=== PATIENT | female | born 1970 | race African-American/Black ===

== ENCOUNTER 2020-08-22 12:30 | Emergency (ER) | payer OTHER ==
[~2020-08-22] VITALS: Ht 160 cm; Wt 119.7 kg
--- NOTE | 2020-08-22 13:00 | Emergency Department Note ---
History of Present Illnes History of Present Illness Chief Complaint: BOB ANTOINE History of Present Illness This is a 49 year old female, with a history of IDDM, hypertension, hyperlipidemia, GERD, neuropathy, morbid obesity, breast cancer, and a flutter status post ablation, presents for evaluation of left lower calf pain that started yesterday, as well as shortness of breath on exertion. She also complains of pain in her left shoulder blade, that radiates forward to her chest. This pain has been intermittent for the past several days, she has not experienced this pain today. 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 She states that the blood pressure reading was 90/50, and she decided to go home and rest. She contacted her PCPs office, they suggested she come in the ED for evaluation. Patient states that the pain in the left calf, just above the Achilles tendon has been ongoing for the past couple of days. She states that she started a walking regimen 3 days ago, and she has been walking for 30 minutes continuously each day, which is a new activity for her. She has not been stretching before or after this physical activity. She states that the shortness of breath is not a new symptom, and that she has been experiencing exertional dyspnea since having Covid in March,. She denies any fever, cough, nasal congestion, orthopnea, PND, lower extremity swelling, or pain with weightbearing of the left leg. She has no history of DVT or PE. She takes a look was twice daily, due to the history of a flutter. She states that she was not taken off of Eliquis, follow ing the ablation last year. 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 Required: No Onset (how long ago): day(s) (2) Location: left leg pain/chest Quality: aching, throbbing; Radiation: Reports back Severity: moderate Onset quality: sudden Duration (how long): day(s) (2) Timing of current episode: intermittent Progression: waxing and waning Chronicity: new (left leg pain is new; the SOB is not new or worse than previous.) Context: Reports recent travel (She drives to [place] twice weekly ); Denies recent immobilization, Denies trauma/injury, Denies hx of DVT/PE Relieving factors: none Exacerbating factors: none Associated symptoms: Reports chest pain (the pain from her left scapula, radiates to the left chest, but she feels like the pain is originating from the left scapula;), Reports shortness of breath; Denies cough, Denies fever/chills, Denies nausea/vomiting, Denies syncope, De nies weakness Treatments prior to arrival: none Risk factors: multiple, see PMH Past Medical/Family History Physician Review I have reviewed the patient's past medical and family history. Any updates have been documented here. Past Medical History Recent Fever: No Clinical Suspicion of Infectio: No New/Unexplained Change in Ment: No Past Medical History: Hypertension, Diabetes (IDDM x 15 years), Cancer (Breast ), GERD, Hyperlipedemia Other Medical History: A Flutter s/p ablation 2019 Morbid Obesity Peripheral Neuropathy Past Surgical History: Cholecysctectomy, Hysterectomy, T&A, Tubal Ligation, Mastectomy (bilateral), Bariatric Surgery (gastric banding) Social History Smoking Cessation: Never Smoker Alcohol Use: None Any Illegal Drug Use: No TB Exposure/Symptoms: No Physically hurt or threatened: No Family History Family history of heart diseas: No Other Any Pre-Existing Lines (PICC,: No Is patient up to date on immun: No Review of Systems Review of Systems Constitutional: Denies chills, Denies fever EENTM: Denies nose congestion, Denies throat pain Cardiovascular: Reports chest pain; Denies edema, Denies palpitations Respiratory: Reports dyspnea on exertion (moderate exertion); Denies cough Gastrointestinal: Denies abdominal pain, Denies diarrhea, Denies nausea, Denies vomiting Genitourinary: Denies dysuria, Denies frequency Musculoskeletal: Reports back pain (left scapula), Reports muscle pain (left lower calf, just above the [place]'s tendon); Denies muscle stiffness, Denies neck pain Integumentary: Denies change in color, Denies rash Neurological: Reports numbness; Denies headache Psychological: Reports anxiety (pt admits to feeling anxious) Endocrine: Reports increased urination Hematological/Lymphatic: Reports no symptoms Review of other systems: All other systems negative Physical Exam Related Data Allergies: Coded Allergies: No Known Allergies (Unverified , 08/22/20) Vital signs reviewed: Yes Physical Exam CONSTITUTIONAL Constitutional: Present well-developed, Present well-nourished, Present morbidly obese; Absent distressed, Absent ill appearing HENT HENT: Present normocephalic, Present atraumatic, Present oropharynx clear/moist, Present nose normal; Absent nasal congestion, Absent rhinorrhea HENT L/R: Present left TM normal, Present right TM normal, Present left ext ear normal, Present right ext ear normal EYES Eyes: Reports PERRL, Reports conjunctivae normal NECK Neck: Present ROM normal, Present supple; Absent thyromegaly, Absent cervical adenopathy PULMONARY Pulmonary: Present effort normal, Present breath sounds normal; Absent respiratory distress CARDIOVASCULAR Cardiovascular: Present regular rhythm, Present heart sounds normal, Present capillary refill normal, Present normal rate; Absent murmur GASTROINTESTINAL Abdominal: Present soft, Present nontender, Present bowel sounds normal GENITOURINARY Genitourinary: Present exam deferred SKIN Skin: Present warm, Present dry; Absent rash MUSCULOSKELETAL Musculoskeletal: Present ROM normal, Present tenderness (mild ttp of left lower calf, at the insertion of the gastrocnemius, just above the achilles tendon; no LE edema, no pain with flexion/negative Layla's sign; ); Absent edema, Absent swelling NEUROLOGICAL PSYCHOLOGICAL Results Laboratory Laboratory CBC - nl; CMP - nl,except for K+ = 3.4, Cl = 97, gluc = 425, Cr = 0.6, BUN = 22; BNP = 101; Cardiacs - nl; D-dimer - nl; UA - neg, except for gluc = 500 mg/dl; Lab results reviewed: Yes Imaging Imaging results reviewed: Yes Impressions [place] [address] Patient Name: LISA FRANK MR #: [id number] : 1970 Age/Sex: 49/F Req #: [id number] Adm Physician: Ordered by: TONIA MEREDITH MD Report #: [id number] Location: [facility] Room/Bed: Procedure: [id number] HOPD/CXR 2 VIEW - HOPD Exam Date: 08/22/20 Exam Time: 1336 REPORT STATUS: Signed EXAMINATION: CXR 2 VIEW - HOPD INDICATION: Shortness of breath COMPARISON: None FINDINGS: LINES/TUBES:None LUNGS:The lungs are well-inflated. No focal consolidation or pulmonary edema. PLEURA:No pleural effusion or pneumothorax. MEDIASTINUM:The cardiomediastinal silhouette appears normal in size and shape. BONES/SOFT TISSUES:No acute osseous injury. Bilateral axillary surgical clips. ABDOMEN:No free air under the diaphragm. IMPRESSION: No focal pneumonia or pulmonary edema. Signed by: Rajani Green MD on 08/22/2020 1:50 PM Dictated By: RAJANI GREEN MD 1350 Transcribed By: AGATA on 08/22/20 1350 COPY TO: TONIA MEREDITH MD~ Procedures 12 Lead ECG Interpretation ECG Interpretation : ECG: ECG 1 Date: Aug 22, 2020 Time: 12:51 Prior ECG tracings: reviewed Rhythm: sinus rhythm Rate: normal BPM: 94 QRS axis: normal ST segments normal: No ST segment flattening: aVL, aVF, V2, V3 T waves normal: No T waves flattening: aVL, aVF, V2 Other findings: no other findings Clinical Impression: abnormal ECG Assessment & Plan Medical Decision Making MDM - Follow-up with your primary care physician this week, regarding your elevated blood sugars, and to discuss possible treatment of anxiety. - Recheck your blood sugars today before dinner and at bedtime. You may take your usual dose of long-acting insulin, as scheduled. - Increase water intake to at least 816 ounce bottles per day. - Recommend that you take an [id number] Potassium supplement as well as Magnesium 400 mg daily. These labs should be re-checked with your PCP. - Be sure to stretch well, before and after exercise. (Pt was concerned about low B/P reading taken at work earlier, but her blood pressure on arrival was 120/71 with oxygen sats of 97% on room air. Discussed with patient that one isolated reading, especially with no intervention is not likely significant. All of her results were reviewed with no significant findings other than her blood sugar being 425 and elevated BUN creatinine ratio indicating that she i needs to increase her water intake. Patient questioned if all of her symptoms could possibly due to anxiety, we discussed that they certainly could be, especially with the wide variety in her symptoms. For her leg pain, she may apply heat, rest, and stretch before and after walking. She is strongly encouraged follow-up with her doctor Vielka MOORE, regarding today's ER visit.) Assessment & Plan Final Impression: (1) Hyperglycemia due to diabetes mellitus (2) Shortness of breath (3) Leg pain, left (4) Hypertension (5) Hypokalemia (6) Neuropathy (7) Morbid obesity Depart Disposition: HOME, SELF-prison Meds Discontinued Reported Medications Clonazepam (CLONAZEPAM) 1 Mg Tablet, 0.5 MG PO BID, TAB 08/22/20 Sertraline Hcl (ZOLOFT) 50 Mg Tablet, 25 MG PO DAILY, #30 TAB 08/22/20 Amoxicillin/Potassium Clav (AUGMENTIN 875-125 TABLET) 1 Each Tablet, 875 MG PO BID, #30 TAB 20 Prednisone (PREDNISONE) 20 Mg Tab, 20 MG PO DAILY, #30 TAB 20 Doxycycline Hyclate (DOXYCYCLINE HYCLATE) 100 Mg Capsule, 100 MG PO BID, CAP 08/22/20 Ibuprofen (IBUPROFEN) 400 Mg Tablet, 800 MG PO Q8H PRN for Mild Pain (1-3) or Fever>100.8, TAB 08/22/20 Butalbital/Aspirin/Caffeine (FIORINAL 50-325-40 MG CAPSULE) 1 Each Capsule, 1-2 CAP PO Q6HR PRN for HEADACHE 08/22/20 TONIA MEREDITH MD Aug 22, 2020 13:00
--- OUTSIDE RECORDS SUMMARY | 2020-08-22 13:17 | XMS REPORT | Clinical Summary ---
Author Author [facility] Organization [facility] Address Unknown Phone Unavailable Care Team Providers Care Web Page Designer Name Role Phone System, Provider Not In MANAGER MAINTENANCE-C PCP Unavailabl e Allergies No Known Active Allergies Medications End Date Status Medication Sig Dispensed Refills Start Date Active azilsartan Take 1 tablet 0 med-chlorthalidone by mouth (EDARBYCLOR) 40-25 mg daily. tablet Active metFORMIN (GLUCOPHAGE) Take 500 mg 0 500 mg tablet by mouth nightly. Active empagliflozin-linagliptin Take 1 tablet 0 (GLYXAMBI) 25-5 mg tablet by mouth nightly. Active omeprazole 20 mg Take 1 tablet 0 tablet,disintegrat, delay by mouth rel nightly. Active metoprolol succinate XL Take 50 mg by 0 (TOPROL-XL) 50 mg 24 hr mouth tablet nightly. Active Problems Problem Noted Date Atrial flutter 08/04/2018 Surgical History Surgery Date Site/Laterality Comments CHOLECYSTECTOMY TONSILLECTOMY ENDOMETRIAL ABLATION LAPAROSCOPIC GASTRIC BANDING REMOVAL, GASTRIC BAND, LAPAROSCOPIC HYSTERECTOMY MASTECTOMY Bilateral Medical History Medical History Date Comments Hypertension Arrhythmia Cancer (HCC) Diabetes mellitus (HCC) Social History Date Tobacco Use Types Packs/Day Years Used Never Smoker Smokeless Tobacco: Never Used Drinks/Week oz/Week Comments Alcohol Use Social drinker. 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
--- OUTSIDE RECORDS SUMMARY | 2020-08-22 13:17 | XMS REPORT | Continuity of Care Document ---
Author Author [facility] Organization [facility] Address [address] [place] [address] Phone Unavailable Care Team Providers Care Business Operations Manager Name Role Phone System CIVIL ATTORNEY-C, Not In Provider PCP Unavailabl e RANCHO SINGH Attphys Unavailable Marco FRANCIS, Evangelist Attphys RANCHO SINGH Admphys Unavailable Problems Condition Name Condition Details Condition Category Status Onset Date Resolution Date Last Treatment Date Treating Clinician Comments Source Atrial flutter Atrial flutter Disease Active 2018-08-04 00:00:00 Evan Brooks Allergies, Adverse Reactions, Alerts This patient has no known allergies or adverse reactions. Social History Social Habit Start Date Stop Date Quantity Comments Source Sex Assigned At Kerri brooke Mormon Tobacco use and exposure 2018-08-04 00:00:00 2018-08-04 00:00:00 Akhil raya used Evan Brooks Alcohol intake 2018-08-04 00:00:00 2018-08-04 00:00:00 Current drinker of alcohol (finding) Evan Brooks Alcohol Comment 2018-08-04 00:00:00 2018-08-04 00:00:00 Social drinkalejandrina Brooks Smoking Status Start Date Stop Date Source Never smoker Evan jackson Medications Ordered Medication Name Filled Medication Name Start Date Stop Da te Current Medication? Ordering Clinician Indication Dosage Frequency Signature (SIG) Comments Components Source azilsartan med-chlorthalidone (EDARBYCLOR) 40-25 mg tablet 2018-08-05 17:28:44 Yes 1{tbl} QD Take 1 tablet by mouth daily. Evan Brooks metFORMIN (GLUCOPHAGE) 500 mg tablet 2018-08-05 17:28:44 Ye s 500mg QD Take 500 mg by mouth nightly. Evan vera empagliflozin-linagliptin (GLYXAMBI) 25-5 mg tablet 2017-09 17:28:44 Yes 1{tbl} QD Take 1 tablet by mouth nightly. Evan Resendezist omeprazole 20 mg tablet,disintegrat, delay rel 2018-08-05 17:28: 44 Yes 1{tbl} QD Take 1 tablet by mouth nightly. Evan Brooks metoprolol succinate XL (TOPROL-XL) 50 mg 24 hr tablet 2018-08-05 17:28:44 Yes 50mg QD Take 50 mg by mouth nightly. Evan Brooks Procedures This patient has no known procedures. Plan of Care Planned Activity Planned Date Details Comments Source Future Scheduled Test 2020-04-21 00:00:00 INFLUENZA VACCINE [code = INFLUENZA VACCINE] Evan Brooks Future Scheduled Test 1992 00:00:00 Screening for jessica gnant neoplasm of cervix (procedure) [code = 515618384] Evan Ledesma Future Scheduled Test 1981 00:00:00 DIABETES: RETINAL EYE EXAM [code = DIABETES: RETINAL EYE EXAM] Evan Brooks Future Scheduled Test 1981 00:00:00 DIABETIC FOOT EXAM [code = DIABETIC FOOT EXAM] Evan Brooks Encounters Start Date/Time End Date/Time Encounter Type Admission Type Attendi [facility] [place] Facility Care Department Encounter ID Source 2019-07-21 14:24:50 2019-07-21 14:54:50 Office Visit Evangelist Haines [facility] [id number] Results Test Description Test Time Test Comments Results Result Comments Source POCT-GLUCOSE METER 2019-08-26 08:10:00 Test Item POC-GLUCOSE METER (BEAKER) (test code = 1538) 280 mg/dL 70-110 H : TESTED AT [facility] [address] [facility], [address]: Chucking Machine Set Up Operator/Household Chores ID = [id number] for AMANDA BARBOUR [id number] 06:18:00* Test Item Value Reference Range Interpretation Comments MAGNESIUM (BEAKER) (test code = 627) 1.5 mg/dL 1.6-2.6 L BASIC METABOLIC [id number] 06:18:00* Test Item Value Reference Range Interpretation Comments SODIUM (BEAKER) (test code = 381) 137 meq/L 136-145 POTASSIUM (BEAKER) (test code = 379) 3.7 meq/L 3.5-5.1 CHLORIDE (BEAKER) (test code = 382) 99 meq/L 98-107 CO2 (BEAKER) (test code = 355) 27 meq/L 22-29 BLOOD UREA NITROGEN (BEAKER) (test code = 354) 19 mg/dL 7-21 CREATININE (BEAKER) (test code = 358) 0.79 mg/dL 0.57-1.25 GLUCOSE RANDOM (BEAKER) (test code = 652) 389 mg/dL 70-105 H CALCIUM (BEAKER) (test code = 697) 9.7 mg/dL 8.4-10.2 EGFR (BEAKER) (test code = 1092) 95 mL/min/1.73 sq m ESTIMATED GFR IS NOT ACCURATE CREATININE CLEARANCE IN PREDICTING GLOMERULAR FILTRATION RATE. ESTIMATED GFR IS NOT APPLICABLE FOR DIALYSIS PATIENTS. PROTHROMBIN TIME/[id number] 06:12:00* Test Item Value Reference Range Interpretation Comments PROTIME (BEAKER) (test code = 759) 13.8 seconds 11.9-14.2 INR (BEAKER) (test code = 370) 1.1 <=5.9 Effective 02/16/2019: PT Reference Range ChangeNew: 11.9-14.2 Previous: 11.7-14. 7RECOMMENDED COUMADIN/WARFARIN INR THERAPY RANGESSTANDARD DOSE: 2.0-3.0 Include s: PROPHYLAXIS for venous thrombosis, systemic embolization; TREATMENT for venou s thrombosis and/or pulmonary embolus.HIGH RISK: Target INR is 2.5-3.5 for patie nts wiht mechanical heart valves.Within 24 hours, if on CoumadinCBC (HEMOGRAM ONLY)2019-08-26 05:59:00* Test Item Value Reference Range Interpretation Comments WHITE BLOOD CELL COUNT (BEAKER) (test code = 775) 7.0 K/ L 3.5- 10.5 RED BLOOD CELL COUNT (BEAKER) (test code = 761) 4.25 M/ L 3.93-5 .22 HEMOGLOBIN (BEAKER) (test code = 410) 12.8 GM/DL 11.2-15.7 HEMATOCRIT (BEAKER) (test code = 411) 38.2 % 34.1-44.9 MEAN CORPUSCULAR VOLUME (BEAKER) (test code = 753) 89.9 fL 79. 4-94.8 MEAN CORPUSCULAR HEMOGLOBIN (BEAKER) (test code = 751) 30.1 pg 25.6-32.2 MEAN CORPUSCULAR HEMOGLOBIN CONC (BEAKER) (test code = 752) 33.5 GM/DL 32.2-35.5 RED CELL DISTRIBUTION WIDTH (BEAKER) (test code = 412) 12.8 % 11.7-14.4 PLATELET COUNT (BEAKER) (test code = 756) 306 K/CU MM 150-450 MEAN PLATELET VOLUME (BEAKER) (test code = 754) 9.7 fL 9.4-12 .3 NUCLEATED RED BLOOD CELLS (BEAKER) (test code = 413) 0 /100 WBC 0 -0
[2020-08-22] MEDS ORDERED: AUGMENTIN 875-1 EACH PO (13:34)
[2020-08-22] MEDS ORDERED: IBUPROFEN400 MG PO (13:34)
[2020-08-22] MEDS ORDERED: PREDNISONE20 MG PO (13:34)
[2020-08-22] MEDS ORDERED: CLONAZEPAM1 MG PO (13:34)
[2020-08-22] MEDS ORDERED: FIORINAL 50-321 EACH PO (13:34)
[2020-08-22] MEDS ORDERED: DOXYCYCLINE HY100 MG PO (13:34)
[2020-08-22] MEDS ORDERED: ZOLOFT50 MG PO (13:34)
--- NOTE | 2020-08-22 13:54 | Diagnostic Imaging Report ---
EXAMINATION: CXR 2 VIEW - HOPD INDICATION: Shortness of breath COMPARISON: None FINDINGS: LINES/TUBES:None LUNGS:The lungs are well-inflated. No focal consolidation or pulmonary edema. PLEURA:No pleural effusion or pneumothorax. MEDIASTINUM:The cardiomediastinal silhouette appears normal in size and shape. BONES/SOFT TISSUES:No acute osseous injury. Bilateral axillary surgical clips. ABDOMEN:No free air under the diaphragm. IMPRESSION: No focal pneumonia or pulmonary edema. Signed by: Sherin Fitzgerald MD on 08/22/2020 1:50 PM
[2020-08-22] MEDS ORDERED: POTASSIUM CHLORIDE 20 MEQ TAB CR PO STA (15:17)
[2020-08-22] MEDS ORDERED: INSULIN REGULAR, HUMAN 100 UNIT/1 ML 3ML VIAL SQ ONE (15:30)
== END 2020-08-22 15:36 | disposition home or self-care (01) ==
LOC: FSED 13:13
DX: E11.65 Type 2 diabetes mellitus with hyperglycemia (principal); E11.40 Type 2 diabetes mellitus with diabetic neuropathy, unspecified; R06.02 Shortness of breath; M79.605 Pain in left leg; E87.6 Hypokalemia; I10 Essential (primary) hypertension; E66.01 Morbid (severe) obesity due to excess calories
CPT/HCPCS: 71046; 80053; 81003; 82553; 83880; 84484; 85025; 85379; 93005; 99284